=== PATIENT | male | born 1960 | race Caucasian/White ===

== ENCOUNTER 2019-10-31 17:07 | Emergency (ER) | payer MEDICAID | END 2019-10-31 18:26 | disposition left against medical advice (07) | LOC: ER 17:07 | DX: S99.922A Unspecified injury of left foot, initial encounter (principal); Z53.21 Procedure and treatment not carried out due to patient leaving prior to being seen by health care provider ==

== ENCOUNTER 2019-10-31 20:52 | Emergency (ER) | payer MEDICAID ==
[~2019-10-31] VITALS: Ht 170.2 cm; Wt 111.0 kg
[2019-10-31] MEDS ORDERED: HYDROCODONE/ACETAMINOPHEN 5/325MG TABLET PO STA (22:32)
[2019-11-01 00:43] VITALS: BP 117/71
== END 2019-11-01 00:57 | disposition home or self-care (01) ==
LOC: ER 21:54
DX: S92.322A Displaced fracture of second metatarsal bone, left foot, initial encounter for closed fracture (principal); S92.332A Displaced fracture of third metatarsal bone, left foot, initial encounter for closed fracture; S92.342A Displaced fracture of fourth metatarsal bone, left foot, initial encounter for closed fracture; W20.8XXA Other cause of strike by thrown, projected or falling object, initial encounter; Y93.89 Activity, other specified; Y92.89 Other specified places as the place of occurrence of the external cause
CPT/HCPCS: 29515; 73630; 99283; Z7610

== ENCOUNTER 2020-12-27 11:07 | Emergency (ER) | payer MEDICAID ==
[~2020-12-27] VITALS: Ht 175.3 cm; Wt 91.0 kg
[2020-12-27 12:37] LABS: HEMATOCRIT. 22.8 % (42.0-52.0); MEAN CORPUSCULAR HEMOGLOBIN 32.1 pg (28.0-32.0); MEAN CORPUSCULAR VOLUME 91.4 fL (80.0-94.0); MEAN PLATELET VOLUME 7.7 fl (7.4-10.4); PLATELET 180 x1000/uL (130-400); RED BLOOD CELL COUNT 2.49 mill/uL (4.7-6.1); RED CELL DISTRIBUTION WIDTH 14.6 % (11.6-14.6)
[2020-12-27 12:46] LABS: CHLORIDE 89 mEq/L (98-107)
[2020-12-27 12:54] LABS: ETHANOL BLOOD < 10 mg/dL
[2020-12-27 13:26] LABS: PLATELET ESTIMATE NORMAL
[2020-12-27] MEDS ORDERED: ACETAMINOPHEN WITH CODEINE 300/30MG TABLET PO ONE (13:45)
[2020-12-27] MEDS ORDERED: CALCIUM ACETATE 667MG CAPSULE PO SCH (18:00)
[2020-12-27 18:55] VITALS: BP 129/26
[2020-12-27] MEDS ORDERED: MORPHINE SULFATE 4 MG/ML CPJ (NOT FOR IM USE) IV ONE (21:00)
[2020-12-27] MEDS ORDERED: EPOETIN ALFA 10000UNITS/ML VIAL SUBCUT SCH (21:00)
[2020-12-27] MEDS ORDERED: EPOETIN ALFA-EPBX 10,000 UNIT/ML VIAL SUBCUT SCH (21:00)
[2020-12-28] MEDS ORDERED: METOPROLOL TARTRATE 50MG TABLET PO SCH (09:00)
[2020-12-28] MEDS ORDERED: FOLIC ACID/VITAMIN B COMP W-C TABLET PO SCH (09:00)
== END 2020-12-27 23:20 | disposition left against medical advice (07) ==
LOC: ER 11:07
DX: I13.2 Hypertensive heart and chronic kidney disease with heart failure and with stage 5 chronic kidney disease, or end stage renal disease (principal); N18.6 End stage renal disease; I50.9 Heart failure, unspecified; F12.90 Cannabis use, unspecified, uncomplicated; Z86.16 Personal history of COVID-19; Z87.01 Personal history of pneumonia (recurrent); Z99.2 Dependence on renal dialysis; Z20.822 Contact with and (suspected) exposure to COVID-19; Z73.6 Limitation of activities due to disability
CPT/HCPCS: 36415; 71045; 80053; 80320; 84484; 85025; 86850; 86900; 86901; 87426; 93005; 99285; J0885; G0480